=== PATIENT | male | born 1995 | race Caucasian/White ===

== ENCOUNTER 2023-08-13 13:27 | Emergency (ER) | payer OTHER | END 2023-08-13 15:23 | disposition home or self-care (01) | LOC: JD.ED 13:27 | DX: T70.0XXA Otitic barotrauma, initial encounter (principal); Z77.098 Contact with and (suspected) exposure to other hazardous, chiefly nonmedicinal, chemicals; Z88.0 Allergy status to penicillin | CPT/HCPCS: 99283 ==